=== PATIENT | female | born 1970 | race Caucasian/White ===

== ENCOUNTER 2017-10-06 03:51 | Emergency (ER) | payer OTHER ==
[~2017-10-06] VITALS: Ht 162.6 cm; Wt 88.5 kg
[~2017-10-06 03:51] MED LIST: AZITHROMYCIN250 MG PO; AZULFIDINE500 MG PO; BACTRIM DS TAB1 EACH PO; BENTYL 10 MG CA10 M1 PO; BUTALB-APAP-CA1 EACH PO; CELEXA40 MG PO; HYDROXYCHLOROQ200 M1 PO; KINERET100 MG/0.6 SUBQ; METHOTREXATE 22.5 MG PO; MOBIC7.5 MG PO; NEURONTIN 300M300 M2 PO
[2017-10-06] MEDS ORDERED: PROTONIX 20 MG20 MG (04:02)
[2017-10-06 04:48] LABS: INFLUENZA A ANTIGEN None Detected (None Detect); INFLUENZA B ANTIGEN None Detected (None Detect)
[2017-10-06] MEDS ORDERED: TUSSIONEX PENN115 ML PO (05:11)
[2017-10-06] MEDS ORDERED: PROAIR HFA8.5 GM INH (05:11)
[2017-10-06] MEDS ORDERED: PREDNISONE50 MG PO (05:12)
[2017-10-06 05:33] VITALS: BP 117/70
== END 2017-10-06 05:34 | disposition home or self-care (01) ==
LOC: M.ERS 03:51
PROVIDERS: Emergency Medicine
DX: J40 Bronchitis, not specified as acute or chronic (principal); I10 Essential (primary) hypertension; M79.7 Fibromyalgia; G62.9 Polyneuropathy, unspecified; Z88.5 Allergy status to narcotic agent; Z88.0 Allergy status to penicillin

== ENCOUNTER 2018-01-06 15:05 | Emergency (ER) | payer OTHER ==
[~2018-01-06] VITALS: Ht 162.6 cm; Wt 83.9 kg
[~2018-01-06 15:05] MED LIST changes: +PREDNISONE50 MG PO; +PROAIR HFA8.5 GM INH; +PROTONIX 20 MG20 MG; +TUSSIONEX PENN115 ML PO
[2018-01-06] MEDS ORDERED: PREDNISONE 20 M20 M1 PO (15:21)
[2018-01-06] MEDS ORDERED: PERCOCET 5-3251 EACH PO (15:21)
[2018-01-06] MEDS ORDERED: ZOFRAN ODT4 MG SUBLING (15:21)
[2018-01-06] MEDS ORDERED: KEFLEX500 M1 PO (15:21)
[2018-01-06 15:54] VITALS: BP 139/85
== END 2018-01-06 15:55 | disposition home or self-care (01) ==
LOC: M.ERS 15:05
DX: R52 Pain, unspecified (principal); R53.1 Weakness; I10 Essential (primary) hypertension; M79.7 Fibromyalgia; G62.9 Polyneuropathy, unspecified; F17.210 Nicotine dependence, cigarettes, uncomplicated; Z88.0 Allergy status to penicillin; Z88.5 Allergy status to narcotic agent